=== PATIENT | female | born 1995 | race Hispanic/Latino ===

== ENCOUNTER 2019-07-19 05:10 | Emergency (ER) | payer OTHER ==
[~2019-07-19] VITALS: Ht 157.5 cm; Wt 57.7 kg
[2019-07-19] MEDS ORDERED: NS 1,000 ML IV ONE (05:45)
[2019-07-19 05:47] LABS: BASO % 0.5 % (0.0-1.0); EOS % 0.5 % (0.0-3.0); HEMOGLOBIN 13.6 g/dl (12.0-15.5); LYMPH # 1.1 10^3/uL (1.5-5.0); LYMPH % 14.2 % (24.0-44.0); MEAN CORPUSCULAR HEMOGLOBIN 28.1 pg (27.0-33.0); MEAN CORPUSCULAR HGB CONC 33.2 g/dl (32.0-36.5); MEAN CORPUSCULAR VOLUME 84.7 fl (80.0-96.0); MONO # 0.4 10^3/uL (0.0-0.8); MONO % 5.5 % (0.0-5.0); NEUTROPHILS # 6.2 10^3/uL (1.5-8.5); PLATELET COUNT, AUTOMATED 277 10^3/uL (150-450); RED BLOOD COUNT 4.84 10^6/uL (4.00-5.40); WHITE BLOOD COUNT 7.9 10^3/uL (4.0-10.0)
[2019-07-19 06:15] LABS: ALBUMIN 3.9 GM/DL (3.2-5.2); ALT/SGPT 24 U/L (12-78); BILIRUBIN,DIRECT < 0.1 MG/DL (0.0-0.2); BILIRUBIN,TOTAL 0.2 MG/DL (0.2-1.0); BLOOD UREA NITROGEN 17 MG/DL (7-18); CALCIUM LEVEL 8.7 MG/DL (8.5-10.1); CARBON DIOXIDE LEVEL 25 MEQ/L (21-32); CHLORIDE LEVEL 107 MEQ/L (98-107); CREATININE FOR GFR 0.78 MG/DL (0.55-1.30); GLOMERULAR FILTRATION RATE > 60.0 (>60); GLUCOSE, FASTING 93 MG/DL (70-100); LIPASE 64 U/L (73-393); POTASSIUM SERUM 4.5 MEQ/L (3.5-5.1); SODIUM LEVEL 140 MEQ/L (136-145); TOTAL PROTEIN 8.1 GM/DL (6.4-8.2)
[2019-07-19] MEDS ORDERED: ZOFR8TAB24 PO (06:55)
[2019-07-19] MEDS ORDERED: REGL10TA6 PO (06:55)
[2019-07-19] MEDS ORDERED: METOCLOPRAMIDE 10 MG TAB PO ONE (07:00)
[2019-07-19] MEDS ORDERED: ONDANSETRON 4 MG ORAL DISINTEGRATING TAB (Q0162 PER 1MG) PO ONE (07:00)
[2019-07-19 07:28] VITALS: BP 131/78
== END 2019-07-19 07:16 | disposition home or self-care (01) ==
LOC: M ED 05:10
DX: R11.2 Nausea with vomiting, unspecified (principal); F17.200 Nicotine dependence, unspecified, uncomplicated
CPT/HCPCS: 80048; 80076; 83690; 84702; 85025; 96360; 96361; 99284; Q0162

== ENCOUNTER 2021-02-20 11:12 | Emergency (ER) | payer OTHER ==
[~2021-02-20] VITALS: Ht 157.5 cm; Wt 60.5 kg
[~2021-02-20 11:12] MED LIST: REGL10TA6 PO; ZOFR8TAB24 PO
[2021-02-20 11:41] VITALS: BP 138/89
== END 2021-02-20 14:32 | disposition left against medical advice (07) ==
LOC: M ED 11:12
DX: Z53.21 Procedure and treatment not carried out due to patient leaving prior to being seen by health care provider (principal)

== ENCOUNTER 2021-11-09 07:53 | Emergency (ER) | payer OTHER ==
[~2021-11-09] VITALS: Ht 160 cm; Wt 55.0 kg
[2021-11-09] MEDS ORDERED: DOXY-443 PO ×2 (12:05→12:30)
[2021-11-09 12:17] VITALS: BP 137/68
== END 2021-11-09 12:35 | disposition home or self-care (01) ==
LOC: M ED 07:53
DX: L03.211 Cellulitis of face (principal); F17.200 Nicotine dependence, unspecified, uncomplicated

== ENCOUNTER 2023-04-21 05:05 | Inpatient (IN) | payer OTHER ==
[~2023-04-21] VITALS: Ht 157.5 cm; Wt 69.5 kg
[~2023-04-21 05:05] MED LIST changes: +DOXY-443 PO
[2023-04-21 05:55] LABS: HEMATOCRIT 39.4 % (36.0-47.0); MEAN CORPUSCULAR HEMOGLOBIN 27.7 pg (27.0-33.0); MEAN CORPUSCULAR VOLUME 83.8 fl (80.0-96.0); PLATELET COUNT, AUTOMATED 294 10^3/uL (150-450); WHITE BLOOD COUNT 7.6 10^3/uL (4.0-10.0)
[2023-04-21 06:17] LABS: ETHYL ALCOHOL (ETHANOL) 0.164 % (0.000-0.010)
[2023-04-21 06:18] LABS: ACETAMINOPHEN LEVEL < 2.0 UG/ML (10.0-20.0); ALBUMIN 3.9 G/DL (3.2-5.2); ALKALINE PHOSPHATASE 72 U/L (46-116); ALT/SGPT 19 U/L (7.0-40); AST/SGOT < 8 U/L (<34); BILIRUBIN,DIRECT < 0.1 MG/DL (<0.4); BILIRUBIN,TOTAL 0.3 MG/DL (0.3-1.2); BLOOD UREA NITROGEN 14 MG/DL (9-23); CALCIUM LEVEL 8.4 MG/DL (8.5-10.1); CARBON DIOXIDE LEVEL 24 MMOL/L (20-31); CHLORIDE LEVEL 112 MMOL/L (98-107); CREATININE FOR GFR 0.66 MG/DL (0.55-1.30); GLOMERULAR FILTRATION RATE > 60.0 (>60); GLUCOSE, FASTING 96 MG/DL (60-100); POTASSIUM SERUM 4.1 MMOL/L (3.5-5.1); SALICYLATE LEVEL < 3.0 MG/DL (<30); SODIUM LEVEL 144 MMOL/L (136-145); TOTAL PROTEIN 7.2 G/DL (5.7-8.2)
[2023-04-21 06:34] LABS: HCG, SERUM QUALITATIVE NEGATIVE (NEGATIVE)
[2023-04-21 09:10] LABS: APPEARANCE, URINE HAZY (CLEAR); BACTERIA, URINE AUTO 2+ (NEGATIVE); BILIRUBIN, URINE AUTO NEGATIVE (NEGATIVE); BLOOD, URINE BLOOD 1+ (NEGATIVE); COLOR, URINE YELLOW (YELLOW); GLUCOSE, URINE (UA) AUTO NEGATIVE (NEGATIVE); KETONE, URINE AUTO NEGATIVE (NEGATIVE); LEUKOCYTE ESTERASE, URINE AUTO 1+ (NEGATIVE); MUCUS, URINE SMALL (NEGATIVE); NITRITE, URINE AUTO NEGATIVE (NEGATIVE); PROTEIN, URINE AUTO NEGATIVE (NEGATIVE); RBC, URINE AUTO 2 /HPF (0-3); SPECIFIC GRAVITY URINE AUTO 1.018 (1.002-1.035); SQUAMOUS EPITHELIAL CELL UR AU 2 /HPF (0-6); UROBILINOGEN, URINE AUTO 0.2 mg/dL (0.0-2.0); WBC, URINE AUTO 7 /HPF (0-3)
[2023-04-21 09:32] LABS: AMPHETAMINES LEVEL URINE NEGATIVE (NEGATIVE); BARBITURATES URINE NEGATIVE (NEGATIVE); BENZODIAZEPINES URINE NEGATIVE (NEGATIVE); CANNABINOIDS URINE NEGATIVE (NEGATIVE); COCAINE METABOLITE URINE NEGATIVE (NEGATIVE); METHADONE URINE NEGATIVE (NEGATIVE); OPIATES URINE NEGATIVE (NEGATIVE); PHENCYCLIDINE URINE NEGATIVE (NEGATIVE)
[2023-04-21] MEDS ORDERED: MED REC IN PROGRESS XX SCH (09:50)
[2023-04-21] MEDS ORDERED: RA M10TA PO (09:57)
[2023-04-21] MEDS ORDERED: HOME MED LIST COMPLETE! XX SCH (10:05)
[2023-04-21] MEDS ORDERED: ONDANSETRON 4MG ORAL DISINTEGRATING TAB PO ONE (11:05)
[2023-04-21] MEDS ORDERED: MOM 30ML SUSPENSION UDC PO PRN (14:15)
[2023-04-21] MEDS ORDERED: MAALOX 30 ML SUSP *UDC PO PRN (14:15)
[2023-04-21] MEDS ORDERED: ACETAMINOPHEN TAB 650MG DOSE (2X325MG) PO PRN (14:15)
[2023-04-21] MEDS ORDERED: IBUPROFEN 400MG TAB PO PRN (14:15)
[2023-04-21] MEDS ORDERED: LORazepam 2 MG TAB PO PRN (15:45)
[2023-04-21 15:48] VITALS: BP 121/68; TEMP 98; O2SAT 99
[2023-04-21 16:03] VITALS: BP 121/68
[2023-04-21] MEDS: MULTIVITAMINS/MINERALS THERAP 1 TAB PO SCH (17:46)
[2023-04-21] MEDS: FOLIC ACID 1MG TAB PO SCH (17:46)
[2023-04-21] MEDS ORDERED: ENTER DRUG NAME HERE (PATIENT'S OWN MED) PO SCH (21:00)
[2023-04-21] MEDS: THIAMINE 100 MG TAB PO SCH (21:44)
[2023-04-21 22:00] VITALS: BP 117/76
[2023-04-22 06:33] VITALS: BP 118/58
[2023-04-22 06:54] VITALS: BP 118/58; TEMP 97.2; O2SAT 100
[2023-04-22] MEDS: MULTIVITAMINS/MINERALS THERAP 1 TAB PO SCH (10:28)
[2023-04-22] MEDS: THIAMINE 100 MG TAB PO SCH ×2 (10:28→20:20)
[2023-04-22] MEDS: FOLIC ACID 1MG TAB PO SCH (10:28)
[2023-04-22] MEDS: VENLAFAXINE **XR** 37.5 MG CAPSULE PO SCH (10:29)
[2023-04-22 18:25] VITALS: BP 130/67; TEMP 97.6; O2SAT 100
[2023-04-22] MEDS: PRAZOSIN 1 MG CAP PO SCH (20:20)
[2023-04-23 06:18] VITALS: BP 127/72; TEMP 97.8; O2SAT 99
[2023-04-23] MEDS: THIAMINE 100 MG TAB PO SCH ×2 (08:15→20:18)
[2023-04-23] MEDS: VENLAFAXINE **XR** 37.5 MG CAPSULE PO SCH (08:15)
[2023-04-23] MEDS: MULTIVITAMINS/MINERALS THERAP 1 TAB PO SCH (08:15)
[2023-04-23] MEDS: FOLIC ACID 1MG TAB PO SCH (08:15)
[2023-04-23 18:54] VITALS: BP 134/77; TEMP 97.7
[2023-04-23] MEDS: PRAZOSIN 1 MG CAP PO SCH (20:18)
[2023-04-23] MEDS: traZODone 50 MG TAB PO PRN (20:18)
[2023-04-24 06:11] VITALS: BP 110/68; TEMP 97.7; O2SAT 97
[2023-04-24] MEDS: FOLIC ACID 1MG TAB PO SCH (08:27)
[2023-04-24] MEDS: THIAMINE 100 MG TAB PO SCH (08:27)
[2023-04-24] MEDS: MULTIVITAMINS/MINERALS THERAP 1 TAB PO SCH (08:27)
[2023-04-24] MEDS: VENLAFAXINE **XR** 37.5 MG CAPSULE PO SCH (08:27)
[2023-04-24] MEDS: diphenhydrAMINE 25MG CAP PO PRN (13:45)
[2023-04-24 18:40] VITALS: BP 116/73; TEMP 98; O2SAT 96
[2023-04-24] MEDS: RAMELTEON 8 MG TAB (ROZEREM) PO SCH (20:12)
[2023-04-24] MEDS: PRAZOSIN 1 MG CAP PO SCH (20:13)
[2023-04-25 06:42] VITALS: BP 116/67; TEMP 96.8; O2SAT 98
[2023-04-25] MEDS: MULTIVITAMINS/MINERALS THERAP 1 TAB PO SCH (08:37)
[2023-04-25] MEDS: FOLIC ACID 1MG TAB PO SCH (08:37)
[2023-04-25] MEDS: VENLAFAXINE **XR** 37.5 MG CAPSULE PO SCH (08:37)
[2023-04-25] MEDS: diphenhydrAMINE 25MG CAP PO PRN (09:59)
[2023-04-25 18:20] VITALS: BP 134/80; TEMP 96.2
[2023-04-25] MEDS: RAMELTEON 8 MG TAB (ROZEREM) PO SCH (20:19)
[2023-04-25] MEDS: PRAZOSIN 1 MG CAP PO SCH (20:20)
[2023-04-26 06:52] VITALS: BP 93/55; TEMP 97.5; O2SAT 98
[2023-04-26] MEDS: VENLAFAXINE **XR** 37.5 MG CAPSULE PO SCH (09:17)
[2023-04-26] MEDS: FOLIC ACID 1MG TAB PO SCH (09:17)
[2023-04-26] MEDS: MULTIVITAMINS/MINERALS THERAP 1 TAB PO SCH (09:17)
[2023-04-26] MEDS: RAMELTEON 8 MG TAB (ROZEREM) PO SCH (20:40)
[2023-04-26] MEDS: PRAZOSIN 1 MG CAP PO SCH (20:40)
[2023-04-27 06:22] VITALS: BP 96/54; TEMP 98.2; O2SAT 98
[2023-04-27] MEDS: FOLIC ACID 1MG TAB PO SCH (08:26)
[2023-04-27] MEDS: VENLAFAXINE **XR** 37.5 MG CAPSULE PO SCH (08:26)
[2023-04-27] MEDS: MULTIVITAMINS/MINERALS THERAP 1 TAB PO SCH (08:26)
[2023-04-27 18:45] VITALS: BP 117/73; TEMP 97.7; O2SAT 99
[2023-04-27] MEDS: PRAZOSIN 1 MG CAP PO SCH (20:14)
[2023-04-27] MEDS: RAMELTEON 8 MG TAB (ROZEREM) PO SCH (20:14)
[2023-04-28 06:24] VITALS: BP 90/52; TEMP 97.7; O2SAT 99
[2023-04-28] MEDS: MULTIVITAMINS/MINERALS THERAP 1 TAB PO SCH (08:46)
[2023-04-28] MEDS: VENLAFAXINE **XR** 37.5 MG CAPSULE PO SCH (08:46)
[2023-04-28] MEDS: FOLIC ACID 1MG TAB PO SCH (08:46)
[2023-04-28 18:00] VITALS: BP 134/73; TEMP 97; O2SAT 98
[2023-04-28] MEDS: PRAZOSIN 1 MG CAP PO SCH (22:07)
[2023-04-28] MEDS: RAMELTEON 8 MG TAB (ROZEREM) PO SCH (22:07)
[2023-04-29] MEDS: traZODone 50 MG TAB PO PRN ×2 (00:20→20:00)
[2023-04-29 06:03] VITALS: BP 126/75; TEMP 96.9; O2SAT 96
[2023-04-29] MEDS: FOLIC ACID 1MG TAB PO SCH (07:54)
[2023-04-29] MEDS: MULTIVITAMINS/MINERALS THERAP 1 TAB PO SCH (07:54)
[2023-04-29] MEDS: VENLAFAXINE **XR** 37.5 MG CAPSULE PO SCH (07:55)
[2023-04-29] MEDS ORDERED: MINI1CAP PO (15:50)
[2023-04-29] MEDS ORDERED: EFFE37.5 PO (15:50)
[2023-04-29] MEDS ORDERED: RAME8TAB2 PO (15:50)
[2023-04-29] MEDS ORDERED: TRAZ-252 PO (15:50)
[2023-04-29 18:07] VITALS: BP 107/58; TEMP 97.1; O2SAT 100
[2023-04-29] MEDS: RAMELTEON 8 MG TAB (ROZEREM) PO SCH (20:00)
[2023-04-29] MEDS: PRAZOSIN 1 MG CAP PO SCH (20:02)
[2023-04-30 06:25] VITALS: BP 148/69; TEMP 96.7; O2SAT 100
[2023-04-30] MEDS ORDERED: VENLAFAXINE **XR** 75MG CAPSULE PO SCH (09:00)
[2023-04-30] MEDS: FOLIC ACID 1MG TAB PO SCH (09:00)
[2023-04-30] MEDS: MULTIVITAMINS/MINERALS THERAP 1 TAB PO SCH (09:00)
[2023-04-30 16:29] VITALS: BP 125/73; TEMP 98.2; O2SAT 96
[2023-04-30 20:12] VITALS: BP 132/86
[2023-04-30] MEDS: PRAZOSIN 1 MG CAP PO SCH (20:12)
[2023-04-30] MEDS: RAMELTEON 8 MG TAB (ROZEREM) PO SCH (20:12)
== END 2023-05-01 05:28 | disposition home or self-care (01) | DRG 885 ==
LOC: M ED 05:05 → M ED INP 14:15 → M PSY 15:42
PROVIDERS: ADMIT Student in an Organized Health Care Education/Training Program; ATTEND Student in an Organized Health Care Education/Training Program
DX: F33.2 Major depressive disorder, recurrent severe without psychotic features (principal); R45.851 Suicidal ideations; F41.1 Generalized anxiety disorder; F43.10 Post-traumatic stress disorder, unspecified; F10.129 Alcohol abuse with intoxication, unspecified; Z56.4 Discord with boss and workmates; E28.2 Polycystic ovarian syndrome; R73.03 Prediabetes; F17.200 Nicotine dependence, unspecified, uncomplicated; Z62.810 Personal history of physical and sexual abuse in childhood

== ENCOUNTER → 2024-01-03 | Outpatient (CLI) | payer OTHER ==
[~2024-01-03] MED LIST changes: +BUSP30TA PO; +CYMB60CA4 PO; +DOXY100C3 PO; +EFFE37.52 PO; +MINI1CAP PO; +RA M10TA PO; +RAME8TAB2 PO; +TRAZ-252 PO
== END ==
LOC: M PLAIMG 08:38
PROVIDERS: ATTEND Nurse Practitioner Family
DX: J32.9 Chronic sinusitis, unspecified (principal); M54.2 Cervicalgia; M54.50 Low back pain, unspecified; M25.561 Pain in right knee; R06.02 Shortness of breath; R05.3 Chronic cough